=== PATIENT | male | born 1980 ===

== ENCOUNTER 2016-08-13 13:58 | Emergency (ER) | payer BC ==
--- NOTE | 2016-08-13 16:22 | UC ---
Complaint Male HPI - HPI Summary HPI Summary: complaint of littel white nodules on the end of his penis started approx 1 month ago not painful, not itchy white pimples that have spread all over denies penile discharge, dysuria, denies fever, back pain, abdominal pain has had unprotected sex 50 % of the time- using condoms now last tested for STI'd 3 years ago - History of Current Complaint Chief Complaint: UCGU Stated Complaint: STD TESTING Time Seen by Provider: 08/13/16 16:15 Hx Obtained From: Patient - Allergies/Home Medications Allergies/Adverse Reactions: Allergies Allergy/AdvReac Type Severity Reaction Status Date / Time No Known Allergies Allergy Verified 08/13/16 16:09 PMH/Surg Hx/FS Hx/Imm Hx Previously Healthy: Yes Endocrine History Of: Denies: Diabetes, Thyroid Disease Cardiovascular History Of: Reports: Hypertension Denies: Cardiac Disorders Respiratory History Of: Denies: COPD, Asthma GI/ History Of: Denies: Ulcer - Surgical History Surgical History: None Surgery Procedure, Year, and Place: denies - Family History Known Family History: Negative: Cardiac Disease, Hypertension, Diabetes - Social History Occupation: Employed Full-time Alcohol Use: Weekly Substance Use Type: None Smoking Status (MU): Former Smoker Type: Cigarettes Length of Time of Smoking/Using Tobacco: 4years Have You Smoked in the Last Year: No When Did the Patient Quit Smoking/Using Tobacco: 2016 - Immunization History Most Recent Influenza Vaccination: denies Review of Systems Constitutional: Negative Skin: Rash Eyes: Negative ENT: Negative Respiratory: Negative Cardiovascular: Negative Gastrointestinal: Negative Genitourinary: Negative Motor: Negative Neurovascular: Negative Musculoskeletal: Negative Neurological: Negative Psychological: Negative All Other Systems Reviewed And Are Negative: Yes Physical Exam Triage Information Reviewed: Yes Appearance: No Pain Distress, Well-Nourished, Obese Vital Signs: Initial Vital Signs Temp 97.7 F 08/13/16 16:02 Pulse 75 08/13/16 16:02 Resp 16 08/13/16 16:02 BP 151/97 08/13/16 16:02 Pulse Ox 100 08/13/16 16:02 Vital Signs Reviewed: Yes Eyes: Positive: Conjunctiva Clear ENT: Positive: Pharynx normal, TMs normal. Negative: Nasal congestion Neck: Positive: No Lymphadenopathy Respiratory: Positive: Lungs clear, Normal breath sounds, No respiratory distress, No accessory muscle use Cardiovascular: Positive: RRR, No Murmur, Pulses Normal Abdomen Description: Positive: Nontender, No Organomegaly, Soft, Distended. Negative: CVA Tenderness (R), CVA Tenderness (L), Guarding Bowel Sounds: Positive: Present Musculoskeletal: Positive: No Edema Neurological Exam: Normal Psychological Exam: Normal Skin Exam: Normal - Penis uncircumcised , head of penis wit white rough rash several small ulcerations on shaft, urethral meatus normal location without discharge, testes and epididymides normal size without masses, scrotum without lesions. Complaint Male Course/Dx - Differential Dx/Diagnosis Differential Diagnosis/HQI/PQRI: Other - STD testing, balanitis, STD , genital warts Provider Diagnoses: elevated blood pressure. screening for sexually transmitted disease. balanitis Discharge - Discharge Plan Condition: Stable Disposition: HOME Prescriptions: Clotrimazole 1% TOPICAL (NF) [Lotrimin 1% TOPICAL (NF)] 1 applic TOPICAL BID #1 tube Patient Education Materials: Balanitis (ED), Sexually Transmitted Diseases (ED) Referrals: No Primary Care Phys,NOPCP [Primary Care Provider] - [facility] [place] [facility] [Outside] Additional Instructions: Please start clotrimazole as directed Increase fluids and rest Take acetaminophen or ibuprofen for fever or pain Please review your discharge instructions. You will be called if any of your lab testes are positive If your symptoms do not improve please call your primary care provider or return to urgent careYour blood pressure is elevated. Please contact your primary care provider within 1 day -4 weeks for further evaluation
[2016-08-13 16:57] VITALS: BP 152/90
[2016-08-14 10:12] LABS: Syphilis Index < 0.1 Index
== END 2016-08-13 17:22 | disposition home or self-care (01) ==
LOC: UCEAST 13:58
DX: Z11.3 Encounter for screening for infections with a predominantly sexual mode of transmission (principal); I10 Essential (primary) hypertension; E66.9 Obesity, unspecified; N48.1 Balanitis; Z87.891 Personal history of nicotine dependence
CPT/HCPCS: 36415; 86592; 86703; 86803; 87389; 87491; 87591; 99202; G0463; G0475